=== PATIENT | female | born 1955 | race Caucasian/White ===

== ENCOUNTER 2025-07-02 17:32 | Outpatient (REF) | payer MEDICARE, MEDICAID, SELFPAY ==
[2025-07-02 18:51] LABS: Abs Immature Grans 0.03 10^3/uL (0.0-0.06); HCT 35.5 % (36.0-46.0); HGB 8.4 g/dL (11.2-15.7); Immature Grans % 0.4 %; MCH 26.5 pg (27.0-33.0); MCHC 23.7 % (32.0-36.0); MCV 112 fL (80-95); MPV 12.5 fL (8.0-11.0); Platelet Count 118 10^3/uL (130-400); RBC 3.17 10^6/uL (3.93-5.22); RDW 17.9 % (11.7-14.6); RDW-SD 73.1 fL; WBC 8.47 10^3/uL (4.4-10.8)
[2025-07-02 18:59] LABS: Iron 48 ug/dL (50-170); Total Iron Binding Capacity 280 ug/dL (250-450); Transferrin Sat 17 % (15-50)
[2025-07-02 19:12] LABS: Hypochromasia 1+; Macrocytosis 2+
[2025-07-02 19:23] LABS: ALT 18 U/L (14-59); AST 12 U/L (15-37); Albumin 3.4 g/dL (3.4-5.0); Alkaline Phosphatase 95 U/L (46-116); Anion Gap 10.5 mmol/L (3-11); BUN 41 mg/dL (7-18); Bilirubin, Total 0.2 mg/dL (0.2-1.0); CO2 23.5 mmol/L (21.0-32.0); Calcium 8.9 mg/dL (8.5-10.1); Chloride 109 mmol/L (98-107); Estimated GFR 17.73 (mL/min/1.73m2); Ferritin 134 ng/mL (8-252); Glucose 105 mg/dL (74-106); Potassium 4.5 mmol/L (3.5-5.1); Sodium 143 mmol/L (136-145); TSH (W/Ref FT4) 2.22 uIU/mL (0.36-3.74); Total Protein 8.2 g/dL (6.4-8.2); Vitamin D 25 Total 19 ng/mL (30-100)
== END 2025-07-02 17:33 | disposition home or self-care (01) ==
LOC: NCHCN 17:32
PROVIDERS: PCP Family Medicine; Visit Provider Registered Nurse
DX: N18.9 Chronic kidney disease, unspecified (principal); F31.62 Bipolar disorder, current episode mixed, moderate
CPT/HCPCS: 80053; 82306; 82728; 83540; 83550; 84443; 85025